=== PATIENT | male | born 1975 | race Caucasian/White ===

== ENCOUNTER → 2016-09-27 | Outpatient (CLI) | payer OTHER ==
[~2016-09-27] MED LIST: CLIN1GEL TOP; LISI-725 PO; METO25TA3 PO; MINO100C22 PO; PANT40TA PO; [UNRECOGNIZED DRUG - CODE] TOP
--- NOTE | 2016-09-27 10:45 | DIAGNOSTIC IMAGING REPORT ---
GI SERIES W/AIR ROUTINE CLINICAL HISTORY: Gastroesophageal reflux. Follow-up. COMPARISON STUDY: None. FLUOROSCOPY TIME: 2.9 minutes. 22 images. FINDINGS: The patient swallowed barium without difficulty. The esophagus is normal in course, caliber, motility. No hiatus hernia. No gastric esophageal reflux. No gastric ulcerations. Duodenal bulb is suboptimally evaluated but appears normal distensible. There is a normal duodenal C-sweep. IMPRESSION: Normal upper GI series. Electronically signed by: Sly Fernandez M.D. 09/27/2016 10:43 AM Dictated Date/Time: 09/27/2016 10:42 AM
== END | disposition home or self-care (01) ==
LOC: C.RAD 10:06
PROVIDERS: ATTEND Internal Medicine Gastroenterology
DX: K21.9 Gastro-esophageal reflux disease without esophagitis (principal)